=== PATIENT | male | born 2000 ===

== ENCOUNTER 2024-09-06 03:03 | Emergency (ER) | payer BC ==
[2024-09-06] MEDS: Sodium Chloride 0.9% 1,000 ML IV SCH (03:06)
[2024-09-06] MEDS: Tranexamic Acid in NACL,ISO-OS 100 ML IV ONE ×2 (03:09→03:21)
[2024-09-06] MEDS: Ertapenem 1 GM Vial IVPUSH ONE (03:45)
[2024-09-06] MEDS: Ondansetron 4 MG/2 ML SDV IVPUSH ONE (03:50)
[2024-09-06 03:51] LABS: BILIRUBIN,URINE NEGATIVE (NEGATIVE); GLUCOSE,URINE NORMAL (NORMAL); KETONES,URINE NEGATIVE (NEGATIVE); LEUKOCYTE ESTERASE,URINE NEGATIVE (NEGATIVE); NITRITE,URINE NEGATIVE (NEGATIVE); OCCULT BLOOD,URINE MODERATE (NEGATIVE); PROTEIN,URINE NEGATIVE (NEGATIVE); UROBILINOGEN,URINE NORMAL (NEGATIVE)
[2024-09-06 04:08] LABS: APPEARANCE,URINE CLEAR (CLEAR); COLOR,URINE YELLOW (YELLOW)
[2024-09-06 04:18] LABS: BACTERIA,URINE FEW (NS); SQUAMOUS EPITHELIAL CELLS,UR FEW (NS,R,O); WBC,URINE 0-5 (0-5)
[2024-09-06 04:46] LABS: HEMATOCRIT 44.8 % (38.3-50.1); HEMOGLOBIN 15.5 g/dL (12.9-17.7); MEAN CORPUSCULAR HEMOGLOBIN 30.1 pg (27.0-33.3); MEAN CORPUSCULAR HGB CONC 34.5 g/dL (28.7-35.3); MEAN CORPUSCULAR VOLUME 87.1 fL (80.8-98.7); MEAN PLATELET VOLUME 8.3 fL (6.7-11.0); PLATELET COUNT,PLT 382 x10(3)uL (117-477); RED BLOOD CELL COUNT 5.14 x10(6)uL (3.90-5.90); RED CELL DISTRIBUTION WIDTH 13.4 % (12.4-15.0); WHITE BLOOD CELL COUNT,WBC 13.6 x10-3/uL (3.2-10.1)
[2024-09-06 04:47] LABS: A/G RATIO 1.2; ALANINE AMINOTRANSFERASE,ALT 51 U/L (12-36); ALBUMIN 4.1 g/dL (3.5-5.2); ALKALINE PHOSPHATASE 69 IU/L (56-112); ASPARTATE AMNIOTRANSFERASE,AST 36 IU/L (5-25); BILIRUBIN TOTAL 0.4 mg/dL (0.1-1.3); BLOOD UREA NITROGEN,BUN 13 mg/dL (7-18); BUN/CREATININE RATIO 10.8 (9-20); CALCIUM 8.3 mg/dL (8.6-10.2); CARBON DIOXIDE,CO2 27 mmol/L (21-32); CHLORIDE,CL 103 mmol/L (100-110); CREATININE 1.2 mg/dL (0.70-1.30); ESTIMATED GFR 86 mL/min (>60); GLUCOSE RANDOM 175 mg/dL (80-116); POTASSIUM,K 3.5 mmol/L (3.5-5.3); PROTEIN TOTAL,TP 7.5 g/dL (6.0-8.0); SODIUM,NA 142 mmol/L (135-145)
[2024-09-06 04:49] LABS: PROTHROMBIN TIME 10.4 sec (9.0-11.1)
[2024-09-06 04:57] LABS: BASOPHILS PERCENT MAN 1 % (0-2); EOSINOPHILS PERCENT MAN 1 % (0-5); LYMPHOCYTES PERCENT MAN 58 % (13-37); MONOCYTES PERCENT MAN 7 % (4-12); SEG NEUTROPHILS PERCENT MAN 33 % (46-82)
[2024-09-06] MEDS: Ondansetron 4 MG/2 ML SDV ONE (05:03)
[2024-09-06] MEDS: Ertapenem 1 GM Vial ONE (05:03)
[2024-09-06] MEDS: Tranexamic Acid 1,000 MG in Sodium Chloride 0.9% 100 ML IV SCH (05:03)
== END 2024-09-06 04:17 ==
LOC: FB.ED 03:03
DX: S31.134A Puncture wound of abdominal wall without foreign body, left lower quadrant without penetration into peritoneal cavity, initial encounter (principal); S81.832A Puncture wound without foreign body, left lower leg, initial encounter; F10.129 Alcohol abuse with intoxication, unspecified; W33.01XA Accidental discharge of shotgun, initial encounter
CPT/HCPCS: 36415; 36430; 80053; 80307; 81001; 85025; 85610; 86850; 86900; 86901; 86920; 86922; 93005; 96374; 96375; 99285-25; J1335; J2405; J3490; J7030; P9016